=== PATIENT | female | born 1975 | race Caucasian/White ===

== ENCOUNTER 2021-06-02 00:15 | Emergency (ER) | payer OTHER, SELFPAY ==
[2021-06-02 00:39] VITALS: BP 140/78; PULSE 146; RESP 34; TEMP 36.6; O2SAT 100; BMI 41.6
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
--- NOTE | 2021-06-02 01:11 | DI.RAD.S_ITS ---
PROCEDURE: XR CHEST 1V INDICATIONS: cough TECHNIQUE: One view of the chest was acquired. COMPARISON: None. FINDINGS: Surgical changes and devices: None. Lungs and pleura: Lungs are clear. No pleural effusions or pneumothorax. Mediastinum: Mediastinal contours appear normal. Heart size is normal. Bones and chest wall: No suspicious bony lesions. Overlying soft tissues appear unremarkable. IMPRESSION: No acute pulmonary process. The above findings are concordant with preliminary report. Dictated by: Luci Martin M.D. on 06/02/2021 at 11:54 Approved by: Luic Martin M.D. on 06/02/2021 at 11:54
[2021-06-02] MEDS: BENZONATATE 100 MG CAPSULE PO (01:36)
[2021-06-02 01:41] VITALS: PULSE 130; RESP 20; O2SAT 99
[2021-06-02] MEDS: ALBUTEROL HFA MDI 60 PUFF/8 GM INHALER INH (01:41)
[2021-06-02 02:28] LABS: Adenovirus Not Detected (Not Detect); B. parapertussis Not Detected (Not Detecte); Bordetella pertussis Not Detected (Not Detecte); Chlamydophila pneumoniae Not Detected (Not Detect); Coronavirus 229E Not Detected (Not Detect); Coronavirus HKU1 Not Detected (Not Detect); Coronavirus NL 63 Not Detected (Not Detect); Coronavirus OC43 Not Detected (Not Detect); Human Metapneumovirus Not Detected (Not Detect); Human Rhinovirus/Enterovirus Not Detected (Not Detect); Influenza A Not Detected (Not Detect); Influenza B Not Detected (Not Detect); Mycoplasma pneumoniae Not Detected (Not Detect); Parainfluenza Virus 1 Not Detected (Not Detect); Parainfluenza Virus 2 Not Detected (Not Detect); Parainfluenza Virus 3 Not Detected (Not Detect); Parainfluenza Virus 4 Not Detected (Not Detect); Respiratory Syncytial Virus Not Detected (Not Detect); SARS- CoV-2 Not Detected (Not Detecte)
[2021-06-02 02:38] VITALS: BP 159/95; PULSE 89; RESP 24; O2SAT 99
== END 2021-06-02 02:39 | disposition home or self-care (01) ==
PROVIDERS: Emergency Provider Emergency Medicine; PCP Family Medicine
DX: J20.9 Acute bronchitis, unspecified (principal)
CPT/HCPCS: 71045; 87633; 94640; 99283; A9270

== ENCOUNTER → 2021-11-22 15:40 | Outpatient (CLI) | payer OTHER, SELFPAY ==
--- NOTE | 2021-11-22 15:43 | DI.RAD.S_ITS ---
PROCEDURE: XR THORACIC SPINE 3V INDICATIONS: pain TECHNIQUE: 3 views of the thoracic spine were acquired. COMPARISON: None. FINDINGS: Bones: No fractures or dislocations. No suspicious bony lesions. 12 pairs of ribs are noted, and appear intact where visualized. Mild S shaped scoliosis of the thoracolumbar spine. Moderate degenerative disc changes noted throughout the thoracic spine. Soft tissues: No paravertebral stripe thickening. IMPRESSION: 1. Multilevel degenerative disease. 2. No acute osseous lesion. If symptoms and/or clinical suspicion for pathology persists, evaluation with MRI should be considered for further assessment. Dictated by: Ebony Yañez MD, PhD on 11/22/2021 at 17:09 Approved by: Ebony Yañez MD, PhD on 11/22/2021 at 17:10
--- NOTE | 2021-11-22 15:43 | DI.RAD.S_ITS ---
PROCEDURE: XR LUMBAR SPINE 2-3V INDICATIONS: pain TECHNIQUE: 3 views of the lumbar spine were acquired. COMPARISON: None. FINDINGS: Bones: 5 [id number] vertebrae are present. There is normal bony alignment. No vertebral body compression fractures. No suspicious bony lesions. Mild L1-L2, L2-L3 and L3-L4 degenerative disc disease. Mild L4-L5 and L5-S1 facet arthropathy. Soft tissues: Overlying bowel gas pattern is normal. No suspicious soft tissue calcifications. IMPRESSION: 1. Multilevel degenerative disc disease. 2. Multilevel facet arthropathy. 3. No fracture. No acute osseous lesion. If symptoms and/or clinical suspicion for pathology persists, evaluation with MRI should be considered for further assessment. Dictated by: Ebony Yañez MD, PhD on 11/22/2021 at 17:08 Approved by: Ebony Yañez MD, PhD on 11/22/2021 at 17:09
--- NOTE | 2021-11-22 15:43 | DI.RAD.S_ITS ---
PROCEDURE: XR CERVICAL SPINE 2V OR 3V INDICATIONS: pain TECHNIQUE: 3 view(s) of the cervical spine were acquired. COMPARISON: None. FINDINGS: Bones: No fractures or dislocations to the T1 level. The lateral masses of C1 appear intact on the odontoid view. No suspicious bony lesions. There is mild reversal normal cervical spine curvature. Moderate C5-C6 degenerative disc changes. Mild C4-C5 and C6-C7 degenerative disc changes. Soft tissues: No prevertebral soft tissue swelling. IMPRESSION: 1. Multilevel degenerative disc disease. 2. No acute osseous lesion. If symptoms and/or clinical suspicion for pathology persists, evaluation with MRI should be considered for further assessment. Dictated by: Ebony Yañez MD, PhD on 11/22/2021 at 17:07 Approved by: Ebony Yañez MD, PhD on 11/22/2021 at 17:08
== END ==
PROVIDERS: PCP Family Medicine; Referring Provider Family Medicine; Visit Provider Family Medicine
DX: M51.36 Other intervertebral disc degeneration, lumbar region (principal); M47.816 Spondylosis without myelopathy or radiculopathy, lumbar region; M50.321 Other cervical disc degeneration at C4-C5 level; M47.817 Spondylosis without myelopathy or radiculopathy, lumbosacral region; M54.9 Dorsalgia, unspecified; G89.21 Chronic pain due to trauma; V89.2XXS Person injured in unspecified motor-vehicle accident, traffic, sequela
CPT/HCPCS: 72040; 72072; 72100

== ENCOUNTER 2021-12-08 12:41 | Emergency (ER) | payer OTHER, SELFPAY ==
[2021-12-08 12:57] VITALS: BP 189/127; PULSE 103; RESP 15; TEMP 36.1; O2SAT 100; BMI 19.3
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
== END 2021-12-08 13:12 | disposition left against medical advice (07) ==
PROVIDERS: Emergency Provider Emergency Medicine; PCP Family Medicine
DX: Z53.21 Procedure and treatment not carried out due to patient leaving prior to being seen by health care provider (principal)
CPT/HCPCS: 99281

== ENCOUNTER 2022-02-13 11:23 | Emergency (ER) | payer OTHER, SELFPAY ==
[2022-02-13 11:27] VITALS: BP 190/119; BP 190/122; PULSE 108; PULSE 109; RESP 20; O2SAT 97; O2SAT 98
[2022-02-13 11:29] VITALS: BP 194/117; PULSE 110; O2SAT 100
[2022-02-13 11:30] VITALS: BP 190/119; PULSE 107; O2SAT 99
[2022-02-13 11:35] VITALS: BP 176/113; PULSE 105; O2SAT 99
[2022-02-13 11:36] VITALS: BP 197/119; PULSE 110; O2SAT 99
[2022-02-13 11:49] VITALS: BP 171/111; PULSE 103; O2SAT 99
[2022-02-13 11:54] LABS: Add Manual Diff / Slide Review NO; Basophils Absolute Auto 200 /uL (0-100); Basophils Percent Auto 2.6 % (0-2); Eosinophils Absolute Auto 100 /uL (0-450); Eosinophils Percent Auto 1.3 % (2-4); Hematocrit 39.2 % (36-46); Hemoglobin 13.5 g/dL (12.0-16.0); Lymphocytes Absolute Auto 2200 /uL (1100-4500); Lymphocytes Percent Auto 33.8 % (25-40); Mean Corpuscular HGB Conc 34.3 % (30-36); Mean Corpuscular Hemoglobin 30.1 PG (26-34); Mean Corpuscular Volume 87.7 fL (80-100); Monocytes Absolute Auto 500 /uL (0-900); Monocytes Percent Auto 7.2 % (3-14); Neutrophils Absolute Auto 3600 /uL (1500-7000); Neutrophils Percent Auto 55.1 % (50-75); Platelet Count 267 X10^3/uL (150-400); Red Blood Cell Count 4.48 X10^6/uL (4.0-5.2); Red Cell Distribution Width 13.8 % (11.6-14.8); White Blood Cell Count 6.5 X10^3/uL (4.5-11.0)
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
[2022-02-13 12:06] LABS: Alanine Aminotransferase 21 IU/L (<35); Albumin 4.5 g/dL (3.5-5.0); Albumin Globulin Ratio 1.4 (1.0-2.8); Alkaline Phosphatase 82 U/L (38-126); Aspartate Aminotransferase 33 IU/L (14-36); BUN Creatinine Ratio 21.8 (6-22); Bilirubin Total 0.3 mg/dL (0.2-1.3); Blood Urea Nitrogen 12 mg/dL (7-17); Calcium 8.2 mg/dL (8.4-10.2); Carbon Dioxide 24 mmol/L (22-32); Chloride 105 mmol/L (98-107); Creatine Kinase 208 U/L (30-135); Estimated Glomerular Filt Rate > 60.0 mL/min (>60); Globulin 3.2 g/dL (1.7-4.1); Glucose 99 mg/dL (70-100); HEMOLYSIS < 15 (0-50); Lipase 58 U/L (23-300); Potassium 3.3 mmol/L (3.4-5.1); Sodium 140 mmol/L (137-145); Total Protein 7.7 g/dL (6.3-8.2)
[2022-02-13 12:18] LABS: Troponin I < 0.012 ng/mL (0.01-0.034)
[2022-02-13 12:22] LABS: CKMB % Relative Index 1.4 % (1.5-5.0)
== END 2022-02-13 12:35 | disposition home or self-care (01) ==
PROVIDERS: Emergency Provider Emergency Medicine
DX: Z02.89 Encounter for other administrative examinations (principal); F41.9 Anxiety disorder, unspecified; R03.0 Elevated blood-pressure reading, without diagnosis of hypertension
CPT/HCPCS: 80053; 82550; 82553; 82962; 83690; 84484; 85025; 93005; 93010; 99281; 99283

== ENCOUNTER 2023-06-08 18:48 | Emergency (ER) | payer OTHER, SELFPAY ==
[2023-06-08 18:43] VITALS: BP 149/85; PULSE 104; O2SAT 96
[2023-06-08 18:44] VITALS: BP 149/85; PULSE 109; RESP 18; TEMP 36.9; O2SAT 98
--- NOTE | 2023-06-08 18:49 | DI.RAD.S_ITS ---
PROCEDURE: XR CHEST 1V INDICATIONS: SOB TECHNIQUE: One view of the chest was acquired. COMPARISON: [facility], CR, XR CHEST 1V, 06/02/2021, 1:14. FINDINGS: Surgical changes and devices: None. Lungs and pleura: Lungs are clear. No pleural effusions or pneumothorax. Mediastinum: Mediastinal contours appear normal. Heart size is normal. Bones and chest wall: No suspicious bony lesions. Overlying soft tissues appear unremarkable. IMPRESSION: No acute cardiopulmonary disease. Dictated by: Nabila Rubio M.D. on 06/08/2023 at 20:10 Approved by: Nabila Rubio M.D. on 06/08/2023 at 20:10
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
[2023-06-08 19:13] LABS: Eosinophils Absolute Auto 100 /uL (0-450); Hemoglobin 13.1 g/dL (12.0-16.0); Lymphocytes Percent Auto 43.3 % (25-40); Monocytes Absolute Auto 400 /uL (0-900); Monocytes Percent Auto 5.9 % (3-14)
[2023-06-08 19:23] LABS: BUN Creatinine Ratio 15.1 (6-22); Blood Urea Nitrogen 11 mg/dL (7-17); Calcium 8.1 mg/dL (8.4-10.2); Carbon Dioxide 24 mmol/L (22-32); Chloride 105 mmol/L (98-107); Estimated Glomerular Filt Rate > 60 mL/min (>60); Glucose 123 mg/dL (70-100); HEMOLYSIS < 15 (0-50); Potassium 3.6 mmol/L (3.4-5.1); Sodium 142 mmol/L (137-145)
[2023-06-08 19:26] LABS: Add Manual Diff / Slide Review NO; Basophils Absolute Auto 100 /uL (0-100); Basophils Percent Auto 0.8 % (0-2); Hematocrit 37.9 % (36-46); Lymphocytes Absolute Auto 3100 /uL (1100-4500); Mean Corpuscular HGB Conc 34.7 % (30-36); Mean Corpuscular Hemoglobin 30.6 PG (26-34); Mean Corpuscular Volume 88.3 fL (80-100); Neutrophils Absolute Auto 3500 /uL (1500-7000); Platelet Count 279 X10^3/uL (150-400); Red Blood Cell Count 4.29 X10^6/uL (4.0-5.2); Red Cell Distribution Width 14.1 % (11.6-14.8); White Blood Cell Count 7.2 X10^3/uL (4.5-11.0)
[2023-06-08 19:38] LABS: Ethanol (ETOH) 465 mg/dL
[2023-06-08 20:39] VITALS: PULSE 113; O2SAT 97
[2023-06-08 20:40] VITALS: BP 124/86; PULSE 108; O2SAT 96
--- NOTE | 2023-06-08 21:59 | PC.NURSE ---
Attempted to call multiple people per patient request for sober ride home. 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 Attempted to call pt's , Mike Cleveland at [phone], no answer. VM left to return call to ED.
--- NOTE | 2023-06-08 22:48 | PC.NURSE ---
Received return call from Mike Cleveland, states that his relationship with patient is actually annulled. He is also in [place] at this time and unable to black pickler patient. Pt made aware.
[2023-06-08] MEDS: ACETAMINOPHEN 325 MG TABLET 650 MG PO (22:51)
[2023-06-08 23:07] VITALS: BP 140/84; PULSE 115; O2SAT 97
== END 2023-06-09 06:30 | disposition home or self-care (01) ==
PROVIDERS: Emergency Provider Emergency Medicine
DX: F10.129 Alcohol abuse with intoxication, unspecified (principal); R06.02 Shortness of breath; Y90.8 Blood alcohol level of 240 mg/100 ml or more
CPT/HCPCS: 36415; 71045; 80048; 80320; 85025; 93005; 93010; 99284

== ENCOUNTER 2023-07-22 09:43 | Emergency (ER) | payer OTHER, SELFPAY ==
[2023-07-22 09:56] VITALS: BP 155/109; PULSE 102; RESP 18; TEMP 36.7; O2SAT 99; BMI 18.5
[2023-07-22 10:25] LABS: Add Manual Diff / Slide Review NO; Basophils Absolute Auto 200 /uL (0-100); Basophils Percent Auto 3.2 % (0-2); Eosinophils Absolute Auto 100 /uL (0-450); Eosinophils Percent Auto 1.7 % (2-4); Hematocrit 35.9 % (36-46); Hemoglobin 12.7 g/dL (12.0-16.0); Lymphocytes Absolute Auto 2500 /uL (1100-4500); Lymphocytes Percent Auto 45.6 % (25-40); Mean Corpuscular HGB Conc 35.4 % (30-36); Mean Corpuscular Hemoglobin 31.6 PG (26-34); Mean Corpuscular Volume 89.3 fL (80-100); Monocytes Absolute Auto 500 /uL (0-900); Monocytes Percent Auto 9.7 % (3-14); Neutrophils Absolute Auto 2100 /uL (1500-7000); Neutrophils Percent Auto 39.8 % (50-75); Platelet Count 301 X10^3/uL (150-400); Red Blood Cell Count 4.02 X10^6/uL (4.0-5.2); Red Cell Distribution Width 15.5 % (11.6-14.8); White Blood Cell Count 5.4 X10^3/uL (4.5-11.0)
[2023-07-22 10:35] LABS: Bacteria Urine None Seen; Culture Indicated Urine Cult Not Indicated; RBC Urine None Seen (0-5/HPF); Squamous Epithelial Cell Urine None Seen (0-5/HPF); UR Morphine/Opiate cutoff 300 Negative (Negative); Ur Creatinine Normal (Normal); Ur Specific Gravity Normal (Normal); Urine Amphetamines Negative (Negative); Urine Barbiturates Negative (Negative); Urine Benzodiazepines Negative (Negative); Urine Cocaine Negative (Negative); Urine MDMA Negative (Negative); Urine Methadone Negative (Negative); Urine Methamphetamines Negative (Negative); Urine Oxycodone Negative (Negative); Urine Phencyclidine Negative (Negative); Urine Tetrahydrocannabinol Negative (Negative); Urine Tricyclic Antidepressant Negative (Negative); Urine pH Normal (Normal); WBC Urine None Seen (0-5/HPF)
[2023-07-22 10:39] LABS: Acetaminophen < 10 ug/mL (10-30); Alanine Aminotransferase 25 IU/L (<35); Albumin 4.5 g/dL (3.5-5.0); Albumin Globulin Ratio 1.3 (1.0-2.8); Alkaline Phosphatase 75 U/L (38-126); Aspartate Aminotransferase 30 IU/L (14-36); BUN Creatinine Ratio 17.9 (6-22); Bilirubin Total 0.3 mg/dL (0.2-1.3); Blood Urea Nitrogen 12 mg/dL (7-17); Calcium 8.8 mg/dL (8.4-10.2); Carbon Dioxide 25 mmol/L (22-32); Chloride 107 mmol/L (98-107); Estimated Glomerular Filt Rate > 60 mL/min (>60); Globulin 3.5 g/dL (1.7-4.1); Glucose 101 mg/dL (70-100); HEMOLYSIS < 15 (0-50); Salicylate < 1.0 mg/dL (<20); Sodium 143 mmol/L (137-145)
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
[2023-07-22 10:46] LABS: Ethanol (ETOH) 349 mg/dL
[2023-07-22 10:51] LABS: COVID19 -Nasal RAPID Negative (Negative)
--- NOTE | 2023-07-22 11:03 | PC.NURSE ---
TEEN COUNSELOR NOTE: pt is dancing in room with her headphones on and sunglasses on this sitter remains at bedside
[2023-07-22 11:13] LABS: Free T4, Direct Thyroxine 0.96 ng/dL (0.78-2.19)
[2023-07-22 11:27] LABS: Thyroid Stimulating Hormone 0.798 uIU/mL (0.47-4.68)
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
--- NOTE | 2023-07-22 12:52 | PC.NURSE ---
Pt's speech is clear but extremely grandious. 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 However pt's actions are calm with occasional dance breaks and very redirectable. Pt eating on her own and ambulating to the bathroom without assistance.
[2023-07-22 12:59] VITALS: BP 122/73; PULSE 94; RESP 14; O2SAT 96
--- NOTE | 2023-07-22 13:01 | CM.SWNOTE ---
[facility] Note [facility] calls [facility], it is reported they are aware of patient as patient has called them as well. It is reported that they have beds and can review patient. [facility] STORE faxes clinicals for review. Kenia at [facility] calls back and asks for updated RN note, updated vitals and height/weight of patient. [facility] states that they can accept patient if ST[facility] CL[facility]ICE [facility]ORE gets [facility] authorization as patient was just at there facility from 07/13/23-07/16/23. [facility] calls [facility] requesting insurance auth, [facility] states that the receiving facility needs to fax the request for insurance auth. [facility]ORE calls [facility] back and informs them of what [facility] reports. Kenia with [facility] states that their facility will not request insurance auth and cannot accept patient. ST[facility] CLERK [facility] STORE reviews this with patient, patient endorses preference to d/c rather than seek hospitalization placement elsewhere. Patient presents as coherent and communicative, patient states she will get a taxi home and states she has funds to do so. [facility]ORE reviews this with ED provider, ED provider and [facility] identify that patient does not meet criteria to be held involuntarily. Patient chooses to d/c from ED and calls taxi for transport upon doing so. Gail Mckeon, SKIP MINER BLASTING
== END 2023-07-22 13:00 | disposition home or self-care (01) ==
PROVIDERS: Emergency Provider Emergency Medicine
DX: F30.9 Manic episode, unspecified (principal); Z20.822 Contact with and (suspected) exposure to COVID-19
CPT/HCPCS: 36415; 80053; 80305; 80320; 80329; 81003; 81015; 81025; 84439; 84443; 85025; 87635; 99283; C9803; G0480

== ENCOUNTER 2024-01-29 13:23 | Emergency (ER) | payer OTHER, SELFPAY ==
[2024-01-29 13:25] VITALS: BP 170/88; PULSE 99; RESP 16; TEMP 36.4; O2SAT 100; BMI 18.8
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
[2024-01-29 15:24] VITALS: BP 136/67; PULSE 87; RESP 18; O2SAT 100
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
== END 2024-01-29 15:31 | disposition home or self-care (01) ==
PROVIDERS: Emergency Provider Physician Assistant
DX: S06.0XAA Concussion with loss of consciousness status unknown, initial encounter (principal); M54.2 Cervicalgia; M95.0 Acquired deformity of nose; Y04.8XXA Assault by other bodily force, initial encounter
CPT/HCPCS: 70450; 70486; 72125; 99281; 99284